=== PATIENT | female | born 1965 | race Caucasian/White ===

== ENCOUNTER → 2017-05-17 | Outpatient (CLI) | payer BC ==
[~2017-05-17] MED LIST: BUPIVACAINE 0.25% 30 ML SDV ONE; DEPO METHYLPREDNISOLONE 40 MG/ML SDV ONE; LIDOCAINE 1% 300 MG/30 ML SDV ONE
== END ==
LOC: FIMAGING 08:15
PROVIDERS: ATTEND Radiology Diagnostic Radiology
PROC: 3E0233Z Introduction of Anti-inflammatory into Muscle, Percutaneous Approach (ICD-10-PCS; principal; 2017-05-17)
DX: M67.431 Ganglion, right wrist (principal)
CPT/HCPCS: J1030

== ENCOUNTER → 2017-06-06 | Outpatient (CLI) | payer BC | LOC: FIMAGING 18:59 | PROVIDERS: ATTEND Radiology Diagnostic Radiology | DX: M75.111 Incomplete rotator cuff tear or rupture of right shoulder, not specified as traumatic (principal); M75.81 Other shoulder lesions, right shoulder; M75.51 Bursitis of right shoulder; M19.011 Primary osteoarthritis, right shoulder ==

== ENCOUNTER → 2017-08-22 | Outpatient (CLI) | payer OTHER ==
[~2017-08-22] MED LIST changes: -DEPO METHYLPREDNISOLONE 40 MG/ML SDV ONE
== END ==
LOC: FIMAGING 10:50
PROVIDERS: ATTEND Radiology Diagnostic Radiology
PROC: 3E0U3GC Introduction of Other Therapeutic Substance into Joints, Percutaneous Approach (ICD-10-PCS; principal; 2017-08-22)
DX: M25.511 Pain in right shoulder (principal)